=== PATIENT | male | born 1980 | race Caucasian/White ===

== ENCOUNTER 2017-09-27 12:35 | Outpatient (RCR) | payer OTHER ==
[2017-10-17] MEDS ORDERED: ASPIRIN 32325 MG/TAB PO (08:31)
[2017-10-17] MEDS ORDERED: NORCO 325 MG-7.1 TAB PO (12:54)
== END 2017-12-07 10:17 ==
LOC: WSOH 12:35
DX: K42.9 Umbilical hernia without obstruction or gangrene (principal); X50.0XXA Overexertion from strenuous movement or load, initial encounter; Y99.0 Civilian activity done for income or pay

== ENCOUNTER 2017-10-17 08:01 | Day surgery (SDC) | payer OTHER ==
[~2017-10-17] VITALS: Ht 170.2 cm; Wt 89.2 kg
[2017-10-17] MEDS ORDERED: ASPIRIN 32325 MG/TAB PO (08:31)
[2017-10-17 08:56] VITALS: BP 136/84; PULSE 54; TEMP 98.2
[2017-10-17 12:15] VITALS: BP 135/79; PULSE 56; TEMP 98.2
[2017-10-17 12:30] VITALS: BP 147/76; PULSE 62
[2017-10-17 12:45] VITALS: BP 132/82; PULSE 54
[2017-10-17] MEDS ORDERED: NORCO 325 MG-7.1 TAB PO (12:54)
[2017-10-17 13:00] VITALS: BP 127/79; PULSE 56
== END 2017-10-17 13:30 | disposition home or self-care (01) ==
LOC: SDCO 08:01
DX: K42.9 Umbilical hernia without obstruction or gangrene (principal)
CPT/HCPCS: C1781; J0690; J1885; J2405; J2704; J2710; J3010; J7120